=== PATIENT | male | born 1930 | race Caucasian/White ===

== ENCOUNTER 2017-01-12 08:58 | Day surgery (SDC) | payer MEDICARE, BC ==
[2017-01-12] VITALS (13 sets, daily range): BP systolic 135–169; BP diastolic 68–105; PULSE 42–68; TEMP 97.6
[~2017-01-12] VITALS: Ht 172.8 cm; Wt 70.4 kg
[~2017-01-12 08:58] MED LIST: 00186-0370-20 IH; AMBIEN 5MG TABLE5 MG PO; ASPIRIN 32325 MG/TA1 PO; ASPIRIN 32325 MG/TAB PO; ASPIRIN 81M81 MG/TA2 PO; CALCIUM 600600 M2 PO; CEFTIN500 MG PO; CLEOCIN HCL300 MG PO; COZAAR 50MG50 MG/TAB PO; COZAAR100 MG PO; FLOMAX 0.40.4 MG/CAP PO; HCTZ 25MG TAB25 MG PO; HCTZ12.5TAB PO; HYTRIN10 M1 PO; LEVAQUIN 750MG750 M1 PO; MAXZIDE 50 MG-71 TAB PO; MEDROL4 MG; MEDROL4 MG PO; METHYLPREDNISOL32 MG PO; MOTRIN 200200 MG/TAB PO; PLAVIX 75MG TAB75 MG PO; PRINIVIL10 MG PO; PROAIR HFA0.09 MG/AC IH; PROTONIX 40MG T40 MG PO; SYNTHROID0.075 MG/T PO; SYNTHROID0.088 MG/T PO; TOPROL XL 50MG50 MG PO; TYLENOL 500MG500 MG PO; VITAMIN B121000 MC2 SL; VITAMIN B122500 MCG PO; ZITHROMAX500 M2 PO; ZOCOR 80MG80 MG PO
[2017-01-12 09:57] LABS: HEMATOCRIT 41.7 % (42.0-52.0); HEMOGLOBIN 13.8 g/dl (13.5-18.0); MEAN CELL VOLUME 93 fl (80.0-100.0); MEAN CORPUSCULAR HEMOGLOBIN 31 pg (27.0-31.0); MEAN CORPUSCULAR HGB CONC 33 g/dl (33.0-37.0); MEAN PLATELET VOLUME 9.7 fl (7.4-10.4); PLATELET COUNT 262 K/mm3 (130-400); RED BLOOD COUNT 4.48 M/mm3 (4.20-5.60); REDCELL DISTRIBUTION WIDTH-CV 13.4 % (11.5-14.5); WHITE BLOOD COUNT 9.5 K/mm3 (4.8-10.8)
[2017-01-12 10:05] LABS: PROTHROMBIN TIME 11.3 SECONDS (9.7-12.8)
[2017-01-12 10:15] LABS: CALCIUM 8.7 mg/dL (8.4-10.2); CREATININE, serum 1.05 mg/dL (0.66-1.25); POTASSIUM 3.7 mmol/L (3.4-5.0)
[2017-01-12] MEDS ORDERED: CALCIUM 600MG+D1 TAB PO (10:20)
[2017-01-12] MEDS ORDERED: B-121000 MCG PO (10:21)
[2017-01-12] MEDS ORDERED: TYLENOL 500MG500 MG PO (10:21)
[2017-01-12] MEDS ORDERED: DITROPAN XL10 MG PO (10:24)
[2017-01-12] MEDS ORDERED: ASPIRIN 81M81 MG/TA2 PO (10:25)
[2017-01-12] MEDS ORDERED: SYNTHROID0.088 MG/T PO (10:41)
== END 2017-01-12 18:42 | disposition home or self-care (01) ==
LOC: COL.CAR 08:58
PROVIDERS: Internal Medicine Cardiovascular Disease
DX: I25.10 Atherosclerotic heart disease of native coronary artery without angina pectoris (principal); I35.0 Nonrheumatic aortic (valve) stenosis; R94.39 Abnormal result of other cardiovascular function study; J44.9 Chronic obstructive pulmonary disease, unspecified; E78.2 Mixed hyperlipidemia; I10 Essential (primary) hypertension; I65.23 Occlusion and stenosis of bilateral carotid arteries; R06.09 Other forms of dyspnea; Z95.1 Presence of aortocoronary bypass graft; Z95.2 Presence of prosthetic heart valve; Z86.73 Personal history of transient ischemic attack (TIA), and cerebral infarction without residual deficits; Z79.02 Long term (current) use of antithrombotics/antiplatelets; Z87.891 Personal history of nicotine dependence; Z79.899 Other long term (current) drug therapy
CPT/HCPCS: C1760; C1769; J2250; J3010; Q9967

== ENCOUNTER 2017-02-06 23:35 | Emergency (ER) | payer MEDICARE, BC ==
[~2017-02-06] VITALS: Ht 172.7 cm; Wt 72.7 kg
[~2017-02-06 23:35] MED LIST changes: +B-121000 MCG PO; +CALCIUM 600MG+D1 TAB PO; +DITROPAN XL10 MG PO
[2017-02-06 23:43] VITALS: TEMP 98
[2017-02-07 00:06] LABS: BASO # 0.1 (0.0-0.2); BASO % 1.2 % (0.0-2.0); EOS # 0.4 (0.0-0.7); GRAN # 4.4 (1.4-6.5); GRAN % 52.6 % (42.2-75.2); HEMATOCRIT 41.3 % (42.0-52.0); HEMOGLOBIN 13.6 g/dl (13.5-18.0); LYMPH # 2.6 (1.2-3.4); LYMPH % 30.6 % (20.0-51.0); MEAN CELL VOLUME 93 fl (80.0-100.0); MEAN CORPUSCULAR HEMOGLOBIN 31 pg (27.0-31.0); MEAN CORPUSCULAR HGB CONC 33 g/dl (33.0-37.0); MEAN PLATELET VOLUME 9.9 fl (7.4-10.4); MONO # 0.9 (0.1-0.6); MONO % 10.1 % (1.7-9.3); PLATELET COUNT 232 K/mm3 (130-400); RED BLOOD COUNT 4.44 M/mm3 (4.20-5.60); REDCELL DISTRIBUTION WIDTH-CV 13.5 % (11.5-14.5); WHITE BLOOD COUNT 8.4 K/mm3 (4.8-10.8)
[2017-02-07 00:14] LABS: ALBUMIN 3.4 gm/dL (3.5-5.0); BILIRUBIN,TOTAL 0.5 mg/dL (0.0-1.0); CALCIUM 8.5 mg/dL (8.4-10.2); CREATININE, serum 0.98 mg/dL (0.66-1.25); POTASSIUM 3.6 mmol/L (3.4-5.0)
[2017-02-07 00:26] LABS: TROPONIN-I 0.022 ng/mL (0.000-0.034)
[2017-02-07 01:40] VITALS: BP 146/87; PULSE 71
== END 2017-02-07 02:31 | disposition short-term general hospital (02) ==
LOC: COL.ER 23:35
PROVIDERS: Emergency Medicine
DX: R07.89 Other chest pain (principal); F31.9 Bipolar disorder, unspecified; J45.909 Unspecified asthma, uncomplicated; I25.10 Atherosclerotic heart disease of native coronary artery without angina pectoris; M19.90 Unspecified osteoarthritis, unspecified site; K21.9 Gastro-esophageal reflux disease without esophagitis; I10 Essential (primary) hypertension; Z79.82 Long term (current) use of aspirin; Z87.891 Personal history of nicotine dependence; Z95.9 Presence of cardiac and vascular implant and graft, unspecified; Z98.890 Other specified postprocedural states
CPT/HCPCS: J2060

== ENCOUNTER 2017-03-28 22:52 | Inpatient (IN) | payer MEDICARE, BC ==
[~2017-03-28] VITALS: Ht 170.2 cm; Wt 81.1 kg
[2017-03-28] MEDS ORDERED: PLAVIX 75MG TAB75 MG PO (23:04)
[2017-03-28 23:21] LABS: BASO # 0.1 (0.0-0.2); BASO % 1.4 % (0.0-2.0); EOS # 0.1 (0.0-0.7); EOS % 1.7 % (0-4.0); GRAN # 2.3 (1.4-6.5); GRAN % 39.4 % (42.2-75.2); LYMPH # 2.4 (1.2-3.4); LYMPH % 40.7 % (20.0-51.0); MEAN CELL VOLUME 92 fl (80.0-100.0); MEAN CORPUSCULAR HGB CONC 33 g/dl (33.0-37.0); MEAN PLATELET VOLUME 9.9 fl (7.4-10.4); MONO % 16.3 % (1.7-9.3); PLATELET COUNT 188 K/mm3 (130-400); RED BLOOD COUNT 3.78 M/mm3 (4.20-5.60); REDCELL DISTRIBUTION WIDTH-CV 13.4 % (11.5-14.5); WHITE BLOOD COUNT 5.9 K/mm3 (4.8-10.8)
[2017-03-28 23:22] LABS: HEMATOCRIT 34.9 % (42.0-52.0); HEMOGLOBIN 11.5 g/dl (13.5-18.0); MEAN CORPUSCULAR HEMOGLOBIN 30 pg (27.0-31.0)
[2017-03-28 23:27] LABS: INR 0.9 (0.8-3.0); PROTHROMBIN TIME 10.3 SECONDS (9.7-12.8)
[2017-03-28 23:28] LABS: ADJUSTED CALCIUM 9.1 mg/dL (8.4-10.2); ALBUMIN 3.1 gm/dL (3.5-5.0); BILIRUBIN,TOTAL 0.6 mg/dL (0.0-1.0); CALCIUM 8.4 mg/dL (8.4-10.2); CREATININE, serum 1.01 mg/dL (0.66-1.25); POTASSIUM 3.6 mmol/L (3.4-5.0); TOTAL PROTEIN 5.7 gm/dL (6.4-8.2)
[2017-03-28 23:29] LABS: PARTIAL THROMBOPLASTIN TIME 30.4 SECONDS (26.0-37.0)
[2017-03-28 23:40] LABS: TROPONIN-I 0.24 ng/mL (0.000-0.034)
[2017-03-29] VITALS (769 sets, daily range): BP systolic 138–167; BP diastolic 49–62; PULSE 46–82; TEMP 97–98.6; O2SAT 91–100
[2017-03-29 05:42] LABS: BASO # 0.1 (0.0-0.2); BASO % 1.3 % (0.0-2.0); EOS # 0.2 (0.0-0.7); EOS % 3.8 % (0-4.0); GRAN # 2.1 (1.4-6.5); GRAN % 37.7 % (42.2-75.2); LYMPH # 2.3 (1.2-3.4); LYMPH % 41.6 % (20.0-51.0); MEAN CELL VOLUME 93 fl (80.0-100.0); MEAN CORPUSCULAR HGB CONC 33 g/dl (33.0-37.0); MEAN PLATELET VOLUME 10.1 fl (7.4-10.4); MONO # 0.8 (0.1-0.6); MONO % 15.1 % (1.7-9.3); PLATELET COUNT 170 K/mm3 (130-400); RED BLOOD COUNT 3.27 M/mm3 (4.20-5.60); REDCELL DISTRIBUTION WIDTH-CV 13.5 % (11.5-14.5); WHITE BLOOD COUNT 5.5 K/mm3 (4.8-10.8)
[2017-03-29 05:44] LABS: HEMATOCRIT 30.5 % (42.0-52.0); MEAN CORPUSCULAR HEMOGLOBIN 31 pg (27.0-31.0)
[2017-03-29 05:51] LABS: CREATININE, serum 1.06 mg/dL (0.66-1.25); POTASSIUM 3.7 mmol/L (3.4-5.0)
[2017-03-30] VITALS (200 sets, daily range): BP systolic 113–172; BP diastolic 44–62; PULSE 48–91; TEMP 97.2–98.5; O2SAT 83–98
[2017-03-30 05:28] LABS: BASO # 0.1 (0.0-0.2); BASO % 1.2 % (0.0-2.0); EOS # 0.3 (0.0-0.7); EOS % 3.8 % (0-4.0); GRAN # 3.5 (1.4-6.5); LYMPH # 1.9 (1.2-3.4); LYMPH % 28.9 % (20.0-51.0); MEAN CELL VOLUME 93 fl (80.0-100.0); MEAN CORPUSCULAR HGB CONC 33 g/dl (33.0-37.0); MEAN PLATELET VOLUME 9.4 fl (7.4-10.4); MONO # 0.8 (0.1-0.6); MONO % 11.5 % (1.7-9.3); PLATELET COUNT 178 K/mm3 (130-400); RED BLOOD COUNT 3.72 M/mm3 (4.20-5.60); REDCELL DISTRIBUTION WIDTH-CV 13.7 % (11.5-14.5); WHITE BLOOD COUNT 6.5 K/mm3 (4.8-10.8)
[2017-03-30 05:33] LABS: HEMATOCRIT 34.5 % (42.0-52.0); HEMOGLOBIN 11.4 g/dl (13.5-18.0); MEAN CORPUSCULAR HEMOGLOBIN 31 pg (27.0-31.0)
[2017-03-30 05:37] LABS: CALCIUM 7.7 mg/dL (8.4-10.2); CREATININE, serum 1.09 mg/dL (0.66-1.25); POTASSIUM 3.8 mmol/L (3.4-5.0)
[2017-03-30 05:53] LABS: PROTHROMBIN TIME 11.2 SECONDS (9.7-12.8)
[2017-03-31 00:11] VITALS: BP 157/49; PULSE 57; TEMP 98.5
[2017-03-31 02:25] VITALS: BP 164/54; PULSE 66; TEMP 99.2
[2017-03-31 04:29] VITALS: BP 164/54; PULSE 66; TEMP 99.2
[2017-03-31 07:31] VITALS: BP 120/48; PULSE 72; TEMP 97.4
[2017-03-31] MEDS ORDERED: NORVASC 10MG10 MG PO (11:45)
[2017-03-31] MEDS ORDERED: VASOTEC 5MG5 MG/TAB PO (11:55)
[2017-03-31 12:05] VITALS: BP 143/47; PULSE 55; TEMP 97.6
== END 2017-03-31 13:20 | disposition home or self-care (01) | DRG 281 ==
LOC: COL.ER 22:52 → ICU 03-29 01:13 → MEDICAL 03-30 19:15
PROVIDERS: Emergency Medicine; Internal Medicine; Nurse Practitioner Family
PROC: B2111ZZ Fluoroscopy of Multiple Coronary Arteries using Low Osmolar Contrast (ICD-10-PCS; principal; 2017-03-30)
DX: I10 Essential (primary) hypertension (principal); I21.4 Non-ST elevation (NSTEMI) myocardial infarction; I42.9 Cardiomyopathy, unspecified; I25.10 Atherosclerotic heart disease of native coronary artery without angina pectoris; Z95.5 Presence of coronary angioplasty implant and graft; Z95.2 Presence of prosthetic heart valve; J45.909 Unspecified asthma, uncomplicated; Z87.891 Personal history of nicotine dependence; Z86.73 Personal history of transient ischemic attack (TIA), and cerebral infarction without residual deficits
CPT/HCPCS: 99223-AI; 99232-AI; 99239; A9502; C1760; C1894; J0360; J1650; J2250; J2405; J2785; J3010; J7030; Q9967

== ENCOUNTER 2017-11-24 10:10 | Day surgery (SDC) | payer MEDICARE, BC ==
[~2017-11-24] VITALS: Ht 172.7 cm; Wt 67.8 kg
[~2017-11-24 10:10] MED LIST changes: +DEMADEX 20MG20 M1 PO; +K-DUR 10 MEQ T10 MEQ PO; +K-DUR20 MEQ PO; +NORVASC 10MG10 MG PO; +VASOTEC 5MG5 MG/TAB PO; +ZOCOR 40MG40 MG PO
[2017-11-24] MEDS ORDERED: VASOTEC 10M10 MG/TAB PO (10:31)
[2017-11-24] MEDS ORDERED: PEPCID40 MG PO (10:37)
[2017-11-24] MEDS ORDERED: HCTZ 25MG TAB25 MG PO (10:37)
[2017-11-24] MEDS ORDERED: NITROSTAT0.4 MG/TAB SL (10:38)
[2017-11-24] MEDS ORDERED: PROAIR HFA0.09 MG/AC IH (10:38)
[2017-11-24 10:40] VITALS: BP 125/56; PULSE 65; TEMP 97.8
[2017-11-24 12:15] VITALS: BP 109/46; PULSE 57; TEMP 97.1
[2017-11-24 12:30] VITALS: BP 129/48; PULSE 59
[2017-11-24 12:45] VITALS: BP 126/46; PULSE 61
[2017-11-24 13:27] VITALS: BP 109/50; PULSE 48
== END 2017-11-24 13:00 | disposition home or self-care (01) ==
LOC: SDCO 10:10
DX: K59.00 Constipation, unspecified (principal); R19.7 Diarrhea, unspecified; K57.30 Diverticulosis of large intestine without perforation or abscess without bleeding; K21.9 Gastro-esophageal reflux disease without esophagitis; K44.9 Diaphragmatic hernia without obstruction or gangrene; R10.13 Epigastric pain; R63.4 Abnormal weight loss; D64.9 Anemia, unspecified; M19.90 Unspecified osteoarthritis, unspecified site; J45.909 Unspecified asthma, uncomplicated; I42.9 Cardiomyopathy, unspecified; I25.10 Atherosclerotic heart disease of native coronary artery without angina pectoris; I10 Essential (primary) hypertension; J84.10 Pulmonary fibrosis, unspecified; E03.9 Hypothyroidism, unspecified; E78.00 Pure hypercholesterolemia, unspecified; Z95.2 Presence of prosthetic heart valve; Z88.1 Allergy status to other antibiotic agents; Z79.01 Long term (current) use of anticoagulants
CPT/HCPCS: J2250; J2405; J3010; J7030

== ENCOUNTER 2018-01-18 09:12 | Inpatient (IN) | payer MEDICARE, BC ==
[~2018-01-18] VITALS: Ht 172.7 cm; Wt 61.4 kg
[~2018-01-18 09:12] MED LIST changes: +NITROSTAT0.4 MG/TAB SL; +PEPCID40 MG PO; +VASOTEC 10M10 MG/TAB PO
[2018-01-18 09:54] LABS: BASO # 0.1 (0.0-0.2); EOS # 0.1 (0.0-0.7); EOS % 1.1 % (0-4.0); GRAN # 5.3 (1.4-6.5); GRAN % 63.4 % (42.2-75.2); HEMATOCRIT 36.8 % (42.0-52.0); HEMOGLOBIN 12.7 g/dl (13.5-18.0); LYMPH # 1.5 (1.2-3.4); LYMPH % 17.9 % (20.0-51.0); MEAN CELL VOLUME 90 fl (80.0-100.0); MEAN CORPUSCULAR HEMOGLOBIN 31 pg (27.0-31.0); MEAN CORPUSCULAR HGB CONC 35 g/dl (33.0-37.0); MEAN PLATELET VOLUME 10.3 fl (7.4-10.4); MONO # 1.4 (0.1-0.6); MONO % 16.1 % (1.7-9.3); PLATELET COUNT 262 K/mm3 (130-400); RED BLOOD COUNT 4.09 M/mm3 (4.20-5.60); REDCELL DISTRIBUTION WIDTH-CV 12.8 % (11.5-14.5)
[2018-01-18 10:04] LABS: ALBUMIN 3.6 gm/dL (3.5-5.0); BILIRUBIN,TOTAL 0.3 mg/dL (0.0-1.0); CALCIUM 8.5 mg/dL (8.4-10.2); MAGNESIUM 2.2 mg/dL (1.6-2.3); PHOSPHOROUS 6.5 mg/dL (2.5-4.5); POTASSIUM 3.5 mmol/L (3.4-5.0); TOTAL PROTEIN 6.9 gm/dL (6.4-8.2)
[2018-01-18 10:06] LABS: CREATININE, serum 4.37 mg/dL (0.66-1.25)
[2018-01-18 10:08] LABS: INR 0.9 (0.8-3.0); PROTHROMBIN TIME 9.9 SECONDS (9.7-12.8)
[2018-01-18 10:10] LABS: PARTIAL THROMBOPLASTIN TIME 26.2 SECONDS (26.0-37.0)
[2018-01-18] MEDS ORDERED: HCTZ 25MG TAB25 MG PO (10:19)
[2018-01-18 14:35] LABS: BASO # 0.1 (0.0-0.2); BASO % 0.6 % (0.0-2.0); EOS # 0.1 (0.0-0.7); GRAN # 4.6 (1.4-6.5); GRAN % 57.8 % (42.2-75.2); HEMOGLOBIN 11.9 g/dl (13.5-18.0); LYMPH # 1.9 (1.2-3.4); LYMPH % 24.1 % (20.0-51.0); MEAN CELL VOLUME 91 fl (80.0-100.0); MEAN CORPUSCULAR HEMOGLOBIN 31 pg (27.0-31.0); MEAN CORPUSCULAR HGB CONC 34 g/dl (33.0-37.0); MEAN PLATELET VOLUME 10.1 fl (7.4-10.4); MONO # 1.3 (0.1-0.6); PLATELET COUNT 243 K/mm3 (130-400); RED BLOOD COUNT 3.87 M/mm3 (4.20-5.60); REDCELL DISTRIBUTION WIDTH-CV 12.8 % (11.5-14.5)
[2018-01-18 14:39] LABS: CALCIUM 8.1 mg/dL (8.4-10.2); HEMATOCRIT 35.2 % (42.0-52.0); POTASSIUM 3.5 mmol/L (3.4-5.0)
[2018-01-18 14:41] LABS: CREATININE, serum 3.92 mg/dL (0.66-1.25)
[2018-01-18 16:12] LABS: COLLECTION METHOD CATHETER
[2018-01-18 16:23] LABS: HYALINE CAST >12 /lpf; MUCOUS Present /lpf; PH 5 (5-8); SQUAMOUS EPITHELIAL 0-2 /hpf; URINE APPEARANCE Hazy; URINE BACTERIA None Seen /hpf; URINE BILIRUBIN Negative (NEGATIVE); URINE BLOOD Negative (NEGATIVE); URINE COLOR Amber; URINE GLUCOSE Negative (NEGATIVE); URINE KETONE Negative (NEGATIVE); URINE LEUKOCYTE ESTERASE Negative (NEGATIVE); URINE NITRATE Negative (NEGATIVE); URINE PROTEIN(semi-quant) Negative (NEGATIVE); URINE RBC 0-2 /hpf; URINE UROBILINOGEN Negative (NEGATIVE)
[2018-01-18 17:22] VITALS: BP 118/44; PULSE 79; TEMP 97.9
[2018-01-18 19:42] VITALS: BP 138/47; PULSE 88
[2018-01-19 00:43] VITALS: BP 127/43; PULSE 72; TEMP 98.8
[2018-01-19 04:16] VITALS: BP 132/49; PULSE 73
[2018-01-19 07:20] LABS: CALCIUM 7.4 mg/dL (8.4-10.2); CREATININE, serum 2.67 mg/dL (0.66-1.25); PHOSPHOROUS 4.4 mg/dL (2.5-4.5)
[2018-01-19 07:24] LABS: BASO # 0.1 (0.0-0.2); BASO % 1.3 % (0.0-2.0); EOS # 0.1 (0.0-0.7); EOS % 2.5 % (0-4.0); GRAN # 3.4 (1.4-6.5); GRAN % 61.1 % (42.2-75.2); HEMOGLOBIN 10.5 g/dl (13.5-18.0); LYMPH # 1.1 (1.2-3.4); LYMPH % 19.2 % (20.0-51.0); MEAN CELL VOLUME 91 fl (80.0-100.0); MEAN CORPUSCULAR HEMOGLOBIN 31 pg (27.0-31.0); MEAN CORPUSCULAR HGB CONC 34 g/dl (33.0-37.0); MEAN PLATELET VOLUME 10.3 fl (7.4-10.4); MONO # 0.9 (0.1-0.6); MONO % 15.2 % (1.7-9.3); PLATELET COUNT 216 K/mm3 (130-400); RED BLOOD COUNT 3.39 M/mm3 (4.20-5.60); REDCELL DISTRIBUTION WIDTH-CV 12.8 % (11.5-14.5)
[2018-01-19 07:38] VITALS: BP 134/77; PULSE 67; TEMP 98.3
[2018-01-19 11:30] VITALS: BP 146/49; PULSE 61; TEMP 97.6
[2018-01-19 15:54] VITALS: BP 150/45; PULSE 57; TEMP 96.7
[2018-01-19 19:16] VITALS: BP 137/42; PULSE 58; TEMP 98.2
[2018-01-20 00:03] VITALS: BP 151/38; PULSE 52; TEMP 98.2
[2018-01-20 02:27] VITALS: BP 151/44; PULSE 52; TEMP 98
[2018-01-20 07:34] VITALS: BP 145/44; PULSE 63; TEMP 98.2
[2018-01-20 07:47] LABS: BASO # 0.1 (0.0-0.2); BASO % 0.9 % (0.0-2.0); EOS # 0.2 (0.0-0.7); EOS % 2.8 % (0-4.0); GRAN # 2.6 (1.4-6.5); GRAN % 46.8 % (42.2-75.2); HEMOGLOBIN 10.5 g/dl (13.5-18.0); LYMPH # 1.8 (1.2-3.4); LYMPH % 33.5 % (20.0-51.0); MEAN CELL VOLUME 92 fl (80.0-100.0); MEAN CORPUSCULAR HEMOGLOBIN 31 pg (27.0-31.0); MEAN CORPUSCULAR HGB CONC 33 g/dl (33.0-37.0); MEAN PLATELET VOLUME 10.5 fl (7.4-10.4); MONO # 0.8 (0.1-0.6); MONO % 14.7 % (1.7-9.3); PLATELET COUNT 233 K/mm3 (130-400); RED BLOOD COUNT 3.43 M/mm3 (4.20-5.60); REDCELL DISTRIBUTION WIDTH-CV 12.8 % (11.5-14.5)
[2018-01-20 07:51] LABS: HEMATOCRIT 31.7 % (42.0-52.0)
[2018-01-20 07:52] LABS: CALCIUM 7.8 mg/dL (8.4-10.2); CREATININE, serum 2.02 mg/dL (0.66-1.25); MAGNESIUM 1.9 mg/dL (1.6-2.3); POTASSIUM 3.4 mmol/L (3.4-5.0)
[2018-01-20 11:47] VITALS: BP 145/37; PULSE 55; TEMP 98.1
[2018-01-20] MEDS ORDERED: CIPRO 500MG TA500 MG PO (12:55)
== END 2018-01-20 13:40 | disposition home or self-care (01) | DRG 868 ==
LOC: COL.ER 09:12 → EDBEDREQTM 13:22 → EDBEDREQ 13:22 → MEDICAL 13:22 → EDBEDREQSVC 13:22 → MEDICAL 16:36
PROVIDERS: Emergency Medicine; Physician Assistant
DX: A02.8 Other specified salmonella infections (principal); N17.9 Acute kidney failure, unspecified; I42.9 Cardiomyopathy, unspecified; E86.0 Dehydration; I10 Essential (primary) hypertension; E87.6 Hypokalemia; I25.10 Atherosclerotic heart disease of native coronary artery without angina pectoris; Z87.891 Personal history of nicotine dependence; Z95.5 Presence of coronary angioplasty implant and graft; Z95.2 Presence of prosthetic heart valve; Z86.73 Personal history of transient ischemic attack (TIA), and cerebral infarction without residual deficits; Z79.01 Long term (current) use of anticoagulants
CPT/HCPCS: 99222-AI; 99232-AI; 99239; J0744; J1644; J7030; J7509

== ENCOUNTER 2018-03-16 13:58 | Outpatient (RCR) | payer SELFPAY ==
[~2018-03-16 13:58] MED LIST changes: +CIPRO 500MG TA500 MG PO
== END 2018-05-08 | disposition home or self-care (01) ==
LOC: COL.CR
DX: Z02.9 Encounter for administrative examinations, unspecified (principal)

== ENCOUNTER 2020-02-24 07:03 | Inpatient (IN) | payer MEDICARE, BC ==
[2020-02-24] VITALS (11 sets, daily range): BP systolic 84–168; BP diastolic 50–67; PULSE 60–80; TEMP 97.4–98.9
[~2020-02-24] VITALS: Ht 172.7 cm; Wt 73.9 kg
[~2020-02-24 07:03] MED LIST changes: +CEPHALEXIN500 M1 PO; +CORDARONE200 MG/TAB PO; +LIPITOR20 MG PO; +PROTONIX20 MG PO
[2020-02-24 10:38] LABS: BASO # 0.1 (0.0-0.2); BASO % 1.4 % (0.0-2.0); EOS # 0.2 (0.0-0.7); GRAN # 4.3 (1.4-6.5); GRAN % 58.8 % (42.2-75.2); HEMOGLOBIN 11.9 g/dl (13.5-18.0); LYMPH # 1.9 (1.2-3.4); LYMPH % 25.3 % (20.0-51.0); MEAN CELL VOLUME 96 fl (80.0-100.0); MEAN CORPUSCULAR HEMOGLOBIN 31 pg (27.0-31.0); MEAN CORPUSCULAR HGB CONC 32 g/dl (33.0-37.0); MEAN PLATELET VOLUME 10.2 fl (7.4-10.4); MONO # 0.8 (0.1-0.6); MONO % 10.8 % (1.7-9.3); PLATELET COUNT 187 K/mm3 (130-400); RED BLOOD COUNT 3.84 M/mm3 (4.20-5.60); REDCELL DISTRIBUTION WIDTH-CV 14.7 % (11.5-14.5)
[2020-02-24 10:44] LABS: ALBUMIN 3.5 gm/dL (3.5-5.0); BILIRUBIN,TOTAL 0.6 mg/dL (0.0-1.0); CALCIUM 8.5 mg/dL (8.4-10.2); CREATININE, serum 1.82 (0.66-1.25); MAGNESIUM 2.2 mg/dL (1.6-2.3); POTASSIUM 3.8 mmol/L (3.4-5.0); TOTAL PROTEIN 6.1 gm/dL (6.4-8.2)
--- NOTE | 2020-02-24 11:21 | NUR ---
Pt up to room 309 w/ at bedside, pt is A&O, independent in room, on room air. Breathing is even and unlabored. pt on tele. Pt has IV to RFA, drainage noted. Will redress or start new IV if not working. pt denies any pain at this time. HR RRR. LS clear. Pulses strong bilaterally. Pt has scrape to LFA covered w/ bandaid. No further needs noted at this time. Call light within reach.
--- NOTE | 2020-02-24 11:36 | NUR ---
New 22g IV started to LFA, flushes w/o difficulty. Pt eating lunch. Sotalol given, Qtc 537, discussed w/ Mickie and Dr. Yeager, ok to give, call if Wtc >600.
--- NOTE | 2020-02-24 16:06 | NUR ---
Patient Service Technician Pst met with patient and patient's Nilda (ph#[phone]) to discuss discharge planning. Patient lives in [place] with Nilda and sees Dr. Pires for primary care. Patient obtains medications from [facility] with no difficulties. Patient denies DME usage and reports independence with ADLS. Patient states he has DPOA-HC completed but SW did not locate copy in EMR. Patient plans to return home at discharge. SW to continue to follow as needed.
--- NOTE | 2020-02-24 17:31 | NUR ---
Pt sitting in recliner, watching tv. Pt denies any needs. RFA IV dc'd w/ catheter tip intact, no complications. Water provided per request. Call light within reach.
--- NOTE | 2020-02-24 20:00 | NUR ---
At time of assessment, patient is alert and oriented and has no complaints of pain. Heart sounds are regular/normal, lungs are clear. He has 1+ pitting edema in bilateral ankles/feet which he states is chronic for him. No new concerns at this time. Will continue to monitor.
[2020-02-25 04:00] VITALS: BP 141/77; PULSE 59; TEMP 98.2
--- NOTE | 2020-02-25 06:04 | NUR ---
Patient has had an uneventful, restful night. His Qtc this morning is 618. Dr. Yeager will be notified.
[2020-02-25 07:19] LABS: BASO # 0.1 (0.0-0.2); BASO % 1.8 % (0.0-2.0); EOS # 0.3 (0.0-0.7); EOS % 4.5 % (0-4.0); GRAN # 3.5 (1.4-6.5); GRAN % 52.6 % (42.2-75.2); HEMOGLOBIN 12.5 g/dl (13.5-18.0); LYMPH % 29.8 % (20.0-51.0); MEAN CELL VOLUME 96 fl (80.0-100.0); MEAN CORPUSCULAR HEMOGLOBIN 31 pg (27.0-31.0); MEAN CORPUSCULAR HGB CONC 32 g/dl (33.0-37.0); MEAN PLATELET VOLUME 10.6 fl (7.4-10.4); MONO # 0.7 (0.1-0.6); MONO % 10.6 % (1.7-9.3); PLATELET COUNT 194 K/mm3 (130-400); RED BLOOD COUNT 4.05 M/mm3 (4.20-5.60); REDCELL DISTRIBUTION WIDTH-CV 14.7 % (11.5-14.5)
[2020-02-25 07:43] LABS: CALCIUM 8.3 mg/dL (8.4-10.2); CREATININE, serum 1.77 (0.66-1.25); MAGNESIUM 2.3 mg/dL (1.6-2.3); POTASSIUM 4.4 mmol/L (3.4-5.0)
[2020-02-25 07:44] VITALS: BP 107/58; PULSE 62; TEMP 97.9
--- NOTE | 2020-02-25 11:09 | NUR ---
Pt assessment completed and charted, alert, oriented, independent, and is on roomair. I/V flushed with no complications. Morning meds provided as per NOV, provided breakfast, tolerated well. No N/V/D, pain, numbness, tingling, edema, SOB at this time as per pt. No further needs at this time.
[2020-02-25 11:30] VITALS: BP 141/51; PULSE 65; TEMP 97.6
--- NOTE | 2020-02-25 11:32 | NUR ---
First visit from the hammer adjuster. No needs right now.
--- NOTE | 2020-02-25 13:49 | NUR ---
SW met with the patient to revisit the discharge plan. The patient plans to return home at discharge and does not questions or concerns about doing so. There are no additional needs at this time.
[2020-02-25 15:58] VITALS: BP 140/55; PULSE 63; TEMP 98
[2020-02-25 20:12] VITALS: BP 143/69; PULSE 69; TEMP 97.4
[2020-02-25] MEDS ORDERED: PROTONIX 40MG T40 MG PO (20:42)
[2020-02-25] MEDS ORDERED: NATURAL POTASS595 MG PO (20:48)
[2020-02-25] MEDS ORDERED: HYTRIN10 M1 PO (20:49)
[2020-02-25] MEDS ORDERED: SINGULAIR 110 MG/TAB PO (20:50)
[2020-02-25] MEDS ORDERED: PROAIR HFA0.09 MG/AC IH (20:51)
[2020-02-25] MEDS ORDERED: NITROSTAT0.4 MG/TAB SL (20:52)
--- NOTE | 2020-02-25 21:45 | NUR ---
Pt assessment completed. Pt resting in bed at this time watching television. Pt alert and oriented x4. Pt denies pain at this time. INT to left forearm patent and free of complications. Pt denies any other needs at this time. Call light within reach. Will continue to monitor
[2020-02-26 00:20] VITALS: BP 123/71; PULSE 64; TEMP 97.5
[2020-02-26 04:15] VITALS: BP 153/65; PULSE 61; TEMP 97.7
--- NOTE | 2020-02-26 05:15 | NUR ---
Pt had uneventful shift. Pt rested well throughout the night. No complaints of pain. IV to left forearm free of complications. Pt denies any other needs at this time. Call light within reach. Will continue to monitor.
[2020-02-26 07:22] LABS: BASO # 0.1 (0.0-0.2); BASO % 1.5 % (0.0-2.0); EOS # 0.3 (0.0-0.7); EOS % 4.5 % (0-4.0); GRAN # 3.8 (1.4-6.5); GRAN % 51.2 % (42.2-75.2); HEMATOCRIT 40.1 % (42.0-52.0); HEMOGLOBIN 12.9 g/dl (13.5-18.0); LYMPH # 2.4 (1.2-3.4); MEAN CELL VOLUME 98 fl (80.0-100.0); MEAN CORPUSCULAR HEMOGLOBIN 32 pg (27.0-31.0); MEAN CORPUSCULAR HGB CONC 32 g/dl (33.0-37.0); MEAN PLATELET VOLUME 10.5 fl (7.4-10.4); MONO # 0.8 (0.1-0.6); MONO % 10.4 % (1.7-9.3); PLATELET COUNT 195 K/mm3 (130-400); REDCELL DISTRIBUTION WIDTH-CV 14.6 % (11.5-14.5)
[2020-02-26 07:23] VITALS: BP 103/58; BP 147/47; PULSE 64; TEMP 97.8
[2020-02-26 07:31] LABS: CALCIUM 8.5 mg/dL (8.4-10.2); CREATININE, serum 1.79 (0.66-1.25); MAGNESIUM 2.3 mg/dL (1.6-2.3); POTASSIUM 4.5 mmol/L (3.4-5.0)
--- NOTE | 2020-02-26 11:21 | NUR ---
SW met with patient to revisit the discharge plan. The patient plans to return home and does not have any concerns about doing so. There are no additional needs at this time.
[2020-02-26 11:25] VITALS: BP 142/56; PULSE 70; TEMP 97.8
--- NOTE | 2020-02-26 11:38 | NUR ---
Patient is alert and oriented. denies any pain. QTc this morning is 613. Dr Yeager was informed, he wants the next dose of Sodalol administered.
[2020-02-26] MEDS ORDERED: BETAPACE 80MG80 MG PO (14:53)
--- NOTE | 2020-02-26 17:35 | NUR ---
Patient was discharge with order for Sotalol 80mg BID PO. INT discontinued. Patient was given information about AFIB, Sotalol, and future appointment with Disability Case Manager. Patient discharged with .
== END 2020-02-26 16:55 | disposition home or self-care (01) | DRG 310 ==
LOC: COL.CARD 07:03 → MEDICAL 09:43
PROVIDERS: ADMIT Internal Medicine Cardiovascular Disease
DX: I48.91 Unspecified atrial fibrillation (principal)
CPT/HCPCS: A9500; J2785; J7509

== ENCOUNTER 2021-06-24 15:47 | Inpatient (IN) | payer MEDICARE, BC ==
[~2021-06-24] VITALS: Ht 165.1 cm; Wt 73.4 kg
[~2021-06-24 15:47] MED LIST changes: +BETAPACE 80MG80 MG PO; +NATURAL POTASS595 MG PO; +SINGULAIR 110 MG/TAB PO
[2021-06-24 16:21] LABS: BASO % 0.4 % (0.0-2.0); EOS % 0.1 % (0-4.0); GRAN # 9.4 K/mm3 (1.4-6.5); GRAN % 84.9 % (42.2-75.2); LYMPH # 0.7 K/mm3 (1.2-3.4); LYMPH % 6.5 % (20.0-51.0); MEAN CELL VOLUME 97 fl (80.0-100.0); MEAN CORPUSCULAR HGB CONC 32 g/dl (33.0-37.0); MEAN PLATELET VOLUME 10.1 fl (7.4-10.4); MONO # 0.8 K/mm3 (0.1-0.6); MONO % 7.2 % (1.7-9.3); PLATELET COUNT 161 K/mm3 (130-400); RED BLOOD COUNT 2.94 M/mm3 (4.20-5.60); REDCELL DISTRIBUTION WIDTH-CV 14.7 % (11.5-14.5)
[2021-06-24 16:23] LABS: HEMATOCRIT 28.6 % (42.0-52.0); HEMOGLOBIN 9.2 g/dl (13.5-18.0); MEAN CORPUSCULAR HEMOGLOBIN 31 pg (27.0-31.0)
[2021-06-24 16:38] LABS: ALBUMIN 2.6 gm/dL (3.4-4.8); BILIRUBIN,TOTAL 0.7 mg/dL (0.2-1.2); CALCIUM 8.6 mg/dL (8.4-10.2); CREATININE, serum 2.44 mg/dL (0.72-1.25); POTASSIUM 4.7 mmol/L (3.5-4.5); TOTAL PROTEIN 5.7 gm/dL (6.2-8.1)
[2021-06-24 16:46] LABS: TROPONIN-I 0.112 ng/mL (0.00-0.033)
[2021-06-24 17:11] LABS: COLLECTION METHOD CLEAN CATCH
[2021-06-24 17:22] LABS: PH 5 (5-8); SQUAMOUS EPITHELIAL 0-2 /hpf; URINE APPEARANCE Hazy; URINE BACTERIA None Seen /hpf; URINE BILIRUBIN Negative (NEGATIVE); URINE BLOOD 2+ (NEGATIVE); URINE COLOR Yellow; URINE GLUCOSE Negative (NEGATIVE); URINE KETONE Negative (NEGATIVE); URINE LEUKOCYTE ESTERASE Negative (NEGATIVE); URINE NITRATE Negative (NEGATIVE); URINE PROTEIN(semi-quant) Negative (NEGATIVE); URINE UROBILINOGEN Negative (NEGATIVE)
[2021-06-24 19:55] VITALS: BP 129/66; PULSE 65; TEMP 97.4
[2021-06-25] VITALS (7 sets, daily range): BP systolic 129–155; BP diastolic 45–79; PULSE 59–70; TEMP 97.3–98.2
--- NOTE | 2021-06-25 00:18 | NUR ---
PT ARRIVED TO MEDICAL FLOOR ROOM 356 AT 2110 BY ED STAFF VIA BED PT ABLE TO AMBULATE TO BED, PT A/OX4, 02 2L NC WITH SATURATIONS OVER 92 PERCENT, PT SOA AND DYSNPEIC WITH AMBULATION.PT HAS UNSTEADY GAIT AND REQUIRES HIS CANE WHICH IS AT HOME. PT NOTED FALL RISK, YELLOW GAIN, SOCKS, BRACELET ON.ASSESMENT COMPLETED. MED REC COMPLETED WITHOUT MED LIST, THIS NURSE ATTEMPTED SEVERAL TIMES TO CONTACT PTS TO RETRIEVE MEDICATION LIST, UNSUCCESFUL ATTEMPTS. THIS NURSE WILL CONTINUE TO CONTACT AND RELAY TO ONCOMING SHIFT. PT ORIENTED TO FLOOR, HOSPITAL POLICY. POC DISCUSSED WITH PT. PT VERBALIZES UNDERSTANDING. ALL QUESTIONS/ CONCERNS ANSWERED. BED LOW. BED ALARM ON. CALL LIGHT WITHIN REACH.
--- NOTE | 2021-06-25 05:47 | NUR ---
PT SLEPT MAJORITY OF THIS NIGHT, 02 4L NC, PT CONTINUES TO AMBULATE TO TOILET AND DECLINES BEDSIDE COMMODE OR URINAL USE. PT UNSTEADY ON HIS FEET AND REMAINS SBA. ALL MEDICATIONS ADMINISTERED ORDERED. I&O NOTED AND RECORDED. PT EXPRESSES NO ADDITIONAL NEEDS AT THIS TIME. CALL LIGHT WITHIN REACH.
--- NOTE | 2021-06-25 07:00 | NUR ---
Report received from MILA Vásquez.. Pt in bed resting, denies needs, will continue to monitor.
[2021-06-25 07:15] LABS: BASO % 0.6 % (0.0-2.0); GRAN # 5.6 K/mm3 (1.4-6.5); GRAN % 87.8 % (42.2-75.2); LYMPH # 0.5 K/mm3 (1.2-3.4); LYMPH % 8.3 % (20.0-51.0); MEAN CELL VOLUME 97 fl (80.0-100.0); MEAN CORPUSCULAR HGB CONC 33 g/dl (33.0-37.0); MEAN PLATELET VOLUME 10.7 fl (7.4-10.4); MONO # 0.2 K/mm3 (0.1-0.6); MONO % 2.5 % (1.7-9.3); PLATELET COUNT 179 K/mm3 (130-400); RED BLOOD COUNT 2.91 M/mm3 (4.20-5.60); REDCELL DISTRIBUTION WIDTH-CV 14.7 % (11.5-14.5)
[2021-06-25 07:18] LABS: HEMATOCRIT 28.1 % (42.0-52.0); HEMOGLOBIN 9.2 g/dl (13.5-18.0); MEAN CORPUSCULAR HEMOGLOBIN 32 pg (27.0-31.0)
[2021-06-25 07:30] LABS: CALCIUM 8.8 mg/dL (8.4-10.2); CREATININE, serum 2.31 mg/dL (0.72-1.25); POTASSIUM 4.5 mmol/L (3.5-4.5)
--- NOTE | 2021-06-25 11:18 | NUR ---
Initial visit; Patient sleeping, Tower Loader Operator left 'Prayer card' with Tower Loader Operator's blessings.
--- NOTE | 2021-06-25 12:08 | NUR ---
Assessment hcarted. Update provided to at bedside, called Eliud earlier regarding concerns for antibiotic coverage and cardiac workup. Orders implemented by Eliud. Will continue to monitor.
[2021-06-25 12:18] LABS: IRON,SERUM 34 ug/dL (35-150)
[2021-06-25 12:27] LABS: TOTAL IRON BINDING CAPACITY 193 ug/dL (261-462)
--- NOTE | 2021-06-25 14:06 | NUR ---
Primary nurse was assisted with [id number] patient care by [employer] [facility] Debra Haq and [employer] instructor Nicole Kohler MSN, RN
--- NOTE | 2021-06-25 18:29 | NUR ---
Pt remains very wheezy and it has increased, disucssed with SY Ramos and she will take a look at things. Pt taking PO well, up to void often todya. Will continue to monitor.
[2021-06-25 20:32] LABS: PARTIAL THROMBOPLASTIN TIME 28.8 SECONDS (26.0-37.0)
--- NOTE | 2021-06-26 01:33 | NUR ---
PT AMBULATED TO BATHROOM, DUMPED URINE BEFORE ABLE TO CHART OUTPUT. PT DID NOT HAVE OXYGEN ON STATING "I DON'T NEED OXYGEN" OXYGEN REPLACED AND PT RETURNED TO BED. SPO2 AT 93%.
[2021-06-26 05:02] VITALS: BP 142/57; PULSE 70; TEMP 97.5
[2021-06-26 06:36] LABS: MEAN CELL VOLUME 95 fl (80.0-100.0); MEAN CORPUSCULAR HGB CONC 33 g/dl (33.0-37.0); MEAN PLATELET VOLUME 10.5 fl (7.4-10.4); PLATELET COUNT 206 K/mm3 (130-400); RED BLOOD COUNT 2.85 M/mm3 (4.20-5.60); REDCELL DISTRIBUTION WIDTH-CV 14.8 % (11.5-14.5)
[2021-06-26 06:38] LABS: HEMATOCRIT 27.2 % (42.0-52.0); MEAN CORPUSCULAR HEMOGLOBIN 32 pg (27.0-31.0)
[2021-06-26 06:54] LABS: CALCIUM 8.3 mg/dL (8.4-10.2); CREATININE, serum 2.09 mg/dL (0.72-1.25)
[2021-06-26 06:57] LABS: LYMPHOCYTE 3 % (20.0-51.0); NEUTROPHILS 91 % (42.0-75.2); OVALOCYTES 1+
[2021-06-26 06:58] LABS: ANISOCYTOSIS 1+; HYPOCHROMIA 1+; SCHISTOCYTES 1+
[2021-06-26 06:59] LABS: PLATELET ESTIMATE NORMAL (NORMAL)
[2021-06-26 08:13] VITALS: BP 143/48; PULSE 73; TEMP 97.6
--- NOTE | 2021-06-26 09:32 | NUR ---
Pt awake upon entry, spouse in room with Pt. No C/O pain at this time. Shift assessment complete, left Pt in bed, lowest position, call light in reach.
[2021-06-26 11:33] VITALS: BP 154/48; PULSE 64; TEMP 97.7
--- NOTE | 2021-06-26 15:31 | NUR ---
Plan is to return homw in [facility]. SW met with patient about care. Patient gave permission to speak in front of about care. Nilda . Patient reports pcp Dr. 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 Other specialist are Dr. Yeager, No poa on file but wll default to . Patient reports that he does not have any care concerns and is not in any pain. Patient reports that he is not really sure what is going on with him. Educated on supports to case management. Will follow.
[2021-06-26 17:03] VITALS: BP 155/54; PULSE 69; TEMP 97.8
[2021-06-26 20:14] VITALS: BP 163/49; PULSE 76; TEMP 98.4
[2021-06-27] VITALS (7 sets, daily range): BP systolic 119–165; BP diastolic 47–70; PULSE 65–89; TEMP 97.6–98.4
--- NOTE | 2021-06-27 08:43 | NUR ---
Pt awake upon entry to room, no C/O pain at this time. Assisted Pt with ordering breakfast. Shift assessment complete, left Pt call light in reach, bed in lowest position.
[2021-06-27 09:22] LABS: MEAN CELL VOLUME 97 fl (80.0-100.0); MEAN CORPUSCULAR HGB CONC 33 g/dl (33.0-37.0); MEAN PLATELET VOLUME 10.9 fl (7.4-10.4); PLATELET COUNT 200 K/mm3 (130-400); RED BLOOD COUNT 2.68 M/mm3 (4.20-5.60)
[2021-06-27 09:26] LABS: HEMATOCRIT 25.9 % (42.0-52.0); HEMOGLOBIN 8.6 g/dl (13.5-18.0); MEAN CORPUSCULAR HEMOGLOBIN 32 pg (27.0-31.0)
[2021-06-27 13:28] LABS: CALCIUM 7.9 mg/dL (8.4-10.2); CREATININE, serum 2.02 mg/dL (0.72-1.25); POTASSIUM 3.6 mmol/L (3.5-4.5)
--- NOTE | 2021-06-27 20:28 | NUR ---
HEP GTT INCREASED 150ML/HR FROM 10.5 TO 12ML/HR. NEXT HEPXA AT 0115 06/28.
[2021-06-28 04:01] VITALS: BP 114/60; PULSE 66; TEMP 97.5
--- NOTE | 2021-06-28 06:01 | NUR ---
PT HAD UNEVENTFUL NIGHT. HEP GTT INFUSING AT 12ML/HR NEXT HEPXA AT 0715 THIS MORNING. 02 ROOM AIR WITH SATURATIONS OVER 92 PERCENT. ALL MEDICATIONS ADMINISTERED ORDERED. PT EXPRESSES NO ADDITIONAL NEEDS AT THIS TIME. CALL LIGHT WITHIN REACH.
[2021-06-28 08:29] VITALS: BP 96/71; PULSE 75; TEMP 97.4
[2021-06-28 09:04] LABS: MEAN CELL VOLUME 95 fl (80.0-100.0); MEAN CORPUSCULAR HGB CONC 33 g/dl (33.0-37.0); MEAN PLATELET VOLUME 10.8 fl (7.4-10.4); PLATELET COUNT 237 K/mm3 (130-400); RED BLOOD COUNT 2.74 M/mm3 (4.20-5.60)
[2021-06-28 09:07] LABS: HEMATOCRIT 25.9 % (42.0-52.0); HEMOGLOBIN 8.6 g/dl (13.5-18.0); MEAN CORPUSCULAR HEMOGLOBIN 31 pg (27.0-31.0)
--- NOTE | 2021-06-28 09:09 | NUR ---
Pt awake upon entry, sitting in the recliner. No C/O pain at this time. Shift assessments complete, left Pt call light in reach.
[2021-06-28 09:22] LABS: CALCIUM 8.1 mg/dL (8.4-10.2); CREATININE, serum 2.27 mg/dL (0.72-1.25); POTASSIUM 3.6 mmol/L (3.5-4.5)
[2021-06-28 09:52] LABS: BAND 8 % (0-10); LYMPHOCYTE 7 % (20.0-51.0); NEUTROPHILS 81 % (42.0-75.2); OVALOCYTES 1+; PLATELET ESTIMATE NORMAL (NORMAL); SCHISTOCYTES 1+
[2021-06-28 12:01] VITALS: BP 149/46; PULSE 61; TEMP 98.2
[2021-06-28 15:17] VITALS: BP 119/90; PULSE 73; TEMP 97.5
--- NOTE | 2021-06-28 20:36 | NUR ---
THIS NURSE CONTACTED SHOE D[employer]ER CARINA WITH DR. VIZCAINO AT THIS TIME. CONSULT COMPLETE.
[2021-06-28 20:42] VITALS: BP 148/42; PULSE 63; TEMP 98.7
[2021-06-29 00:41] VITALS: BP 160/50; PULSE 76; TEMP 97.4
[2021-06-29 04:00] VITALS: BP 138/63; PULSE 72; TEMP 97.8
--- NOTE | 2021-06-29 06:38 | NUR ---
PT HAD UNEVENTFUL NIGHT THIS NIGHT. ALL NEEDS MET THIS NIGHT. CALL LIGHT WITHIN REACH.
[2021-06-29 07:10] LABS: MEAN CELL VOLUME 96 fl (80.0-100.0); MEAN CORPUSCULAR HGB CONC 33 g/dl (33.0-37.0); MEAN PLATELET VOLUME 10.5 fl (7.4-10.4); PLATELET COUNT 251 K/mm3 (130-400); RED BLOOD COUNT 2.71 M/mm3 (4.20-5.60); REDCELL DISTRIBUTION WIDTH-CV 15.1 % (11.5-14.5)
[2021-06-29 07:18] LABS: HEMOGLOBIN 8.6 g/dl (13.5-18.0); MEAN CORPUSCULAR HEMOGLOBIN 32 pg (27.0-31.0)
[2021-06-29 07:28] LABS: CALCIUM 7.9 mg/dL (8.4-10.2); CREATININE, serum 2.02 mg/dL (0.72-1.25); POTASSIUM 3.6 mmol/L (3.5-4.5)
[2021-06-29 08:00] VITALS: BP 118/56; PULSE 69; TEMP 97.9
[2021-06-29 08:08] LABS: BAND 1 % (0-10); LYMPHOCYTE 24 % (20.0-51.0); METAMYELOCYTE 1 % (0-0); NEUTROPHILS 67 % (42.0-75.2); OVALOCYTES 1+; PLATELET ESTIMATE NORMAL (NORMAL)
--- NOTE | 2021-06-29 11:04 | NUR ---
PT LAYING IN BED IN PLEASANT MOOD. PT SEEMED SLIGHTLY CONFUSED AND NOT ORIENTATED TO TIME. DURING MED PASS, PATIENT KEPT STATING "SCHEDULE SAYS THESE IN THE MORNING" THIS RN REORIENTATED PT TO TIME AND APPROPRIATE TIME FOR MEDICATION. PT AT BEDSIDE, PT BROUGHT PT COFFEE THIS MORNING WITHOUT THIS RN NOTICING, PT AND DR NOTIFIED OF NEEDING TO RESCHEDULE MIGDALIA DUE TO CAFFEINE. WILL RE EDUCATE ABOUT NPO STATUS AT MIDNIGHT WITH NO CAFFEINE TOMORROW.
[2021-06-29 11:37] VITALS: BP 152/48; PULSE 80; TEMP 97.5
[2021-06-29 16:00] VITALS: BP 101/67; PULSE 82; TEMP 97.8
--- NOTE | 2021-06-29 18:38 | NUR ---
PT HAS BEEN PLEASANT ALL DAY. DENIES ANY PAIN OR SOB. PT HAS COUGH, BUT DENIES ANY DIFFICULTY. TOOK ALL MEDS PRESCRIBED. PT AT BEDSIDE MOST OF DAY AND BOTH INVOLVED IN CARE.
[2021-06-29 19:52] VITALS: BP 119/61; PULSE 71; TEMP 97.5
--- NOTE | 2021-06-29 20:18 | NUR ---
Patient is in bed, alert and oriented, VSS, reports no SOB, wheezes with exalation. Tele in place, paced, 1500FR, Reports no pain, nausea or vomiting. Assessmente completed, no further needs at this time, call light within reach.
[2021-06-30 00:28] VITALS: BP 116/69; PULSE 78; TEMP 97.4
[2021-06-30 04:49] VITALS: BP 128/57; PULSE 63; TEMP 97.5
--- NOTE | 2021-06-30 07:18 | NUR ---
Patient has had no problems along the night. No complains of SOB. Shift report given to day nurse.
[2021-06-30 07:39] LABS: MEAN CELL VOLUME 94 fl (80.0-100.0); MEAN CORPUSCULAR HGB CONC 34 g/dl (33.0-37.0); MEAN PLATELET VOLUME 10.8 fl (7.4-10.4); PLATELET COUNT 248 K/mm3 (130-400); RED BLOOD COUNT 2.78 M/mm3 (4.20-5.60); REDCELL DISTRIBUTION WIDTH-CV 15.2 % (11.5-14.5)
[2021-06-30 07:50] VITALS: BP 104/58; PULSE 68; TEMP 97.6
[2021-06-30 07:50] LABS: CALCIUM 7.8 mg/dL (8.4-10.2); CREATININE, serum 1.86 mg/dL (0.72-1.25); POTASSIUM 3.9 mmol/L (3.5-4.5)
[2021-06-30 07:51] LABS: HEMATOCRIT 26.1 % (42.0-52.0); HEMOGLOBIN 8.8 g/dl (13.5-18.0); MEAN CORPUSCULAR HEMOGLOBIN 32 pg (27.0-31.0)
[2021-06-30] MEDS ORDERED: RT ADVAIR 228 DISKUS IH (07:53)
[2021-06-30] MEDS ORDERED: RT SPIRIVA18 MCG IH (07:55)
[2021-06-30] MEDS ORDERED: TESSALON PERLE200 MG PO (07:58)
[2021-06-30 08:17] LABS: ANISOCYTOSIS 1+; EOSINOPHIL 1 % (0-4); HYPOCHROMIA 1+; LYMPHOCYTE 19 % (20.0-51.0); NEUTROPHILS 74 % (42.0-75.2)
[2021-06-30 08:18] LABS: PLATELET ESTIMATE NORMAL (NORMAL)
[2021-06-30] MEDS ORDERED: CEFTIN500 MG PO (09:02)
[2021-06-30] MEDS ORDERED: MUCUS RELIEF200 MG PO (09:03)
[2021-06-30] MEDS ORDERED: PREDNISONE20 MG PO (09:04)
--- NOTE | 2021-06-30 10:49 | NUR ---
pt required 2lpm/nc to maintain a spo2 or 92% during exercise
--- NOTE | 2021-06-30 11:14 | NUR ---
Collaborated with OT and patient will need 2Lt home O2. Met with patient and patients at bedside to notify and obtain a perfered company. Patient and in agreement to ssetting up home O2 through [facility]. Order obtained from SY Bean. Gerry at [facility] contacted and orders faxed to them. Gerry informed me that they probably will not be able to deliver it to the hospital until later in the day.
--- NOTE | 2021-06-30 11:39 | NUR ---
First visit from the bereavement program coordinator. No needs right now.
[2021-06-30 11:43] VITALS: BP 134/75; PULSE 89; TEMP 97.7
--- NOTE | 2021-06-30 14:13 | NUR ---
Discharge orders discussed with patient and his , instructed to follow up with PCP/cards/ pulm as we have scheduled for him, IV and tele removed, home O2 being ordered by Social work, waiting for portable tank to be delivered, I will escort the patient out the door when he is ready
--- NOTE | 2021-06-30 14:26 | NUR ---
TERES[employer] delivered the patient's oxygen to his room. No additional needs at this time.
== END 2021-06-30 14:16 | disposition home or self-care (01) | DRG 871 ==
LOC: COL.ER 15:47 → MEDICAL 18:11
PROVIDERS: Emergency Medicine; Physician Assistant; Student in an Organized Health Care Education/Training Program; ADMIT Internal Medicine
DX: A40.3 Sepsis due to Streptococcus pneumoniae (principal); J96.01 Acute respiratory failure with hypoxia; J44.1 Chronic obstructive pulmonary disease with (acute) exacerbation; I42.9 Cardiomyopathy, unspecified; I50.22 Chronic systolic (congestive) heart failure; I13.0 Hypertensive heart and chronic kidney disease with heart failure and stage 1 through stage 4 chronic kidney disease, or unspecified chronic kidney disease; N17.9 Acute kidney failure, unspecified; T82.897A Other specified complication of cardiac prosthetic devices, implants and grafts, initial encounter; Z66 Do not resuscitate; I25.10 Atherosclerotic heart disease of native coronary artery without angina pectoris; E78.5 Hyperlipidemia, unspecified; M19.90 Unspecified osteoarthritis, unspecified site; E03.9 Hypothyroidism, unspecified; I48.91 Unspecified atrial fibrillation; K21.9 Gastro-esophageal reflux disease without esophagitis; R73.9 Hyperglycemia, unspecified; E87.5 Hyperkalemia; D63.8 Anemia in other chronic diseases classified elsewhere; N40.1 Benign prostatic hyperplasia with lower urinary tract symptoms; N39.498 Other specified urinary incontinence; N18.30 Chronic kidney disease, stage 3 unspecified; I34.0 Nonrheumatic mitral (valve) insufficiency; Y71.2 Prosthetic and other implants, materials and accessory cardiovascular devices associated with adverse incidents; Z96.652 Presence of left artificial knee joint; Z20.822 Contact with and (suspected) exposure to COVID-19; Z95.5 Presence of coronary angioplasty implant and graft; Z95.2 Presence of prosthetic heart valve; Z86.73 Personal history of transient ischemic attack (TIA), and cerebral infarction without residual deficits; Z79.01 Long term (current) use of anticoagulants; Z95.0 Presence of cardiac pacemaker; Z23 Encounter for immunization
CPT/HCPCS: 99223-AI; 99232-AI; 99233-AI; 99239; A9540; A9567; J0690; J0696; J1644; J1940; J2920; J2930; J7512

== ENCOUNTER 2021-11-03 16:13 | Observation (INO) | payer MEDICARE, BC ==
[~2021-11-03] VITALS: Ht 172.7 cm; Wt 70.5 kg
[~2021-11-03 16:13] MED LIST changes: +MUCUS RELIEF200 MG PO; +PREDNISONE20 MG PO; +RT ADVAIR 228 DISKUS IH; +RT SPIRIVA18 MCG IH; +TESSALON PERLE200 MG PO
[2021-11-03 16:42] LABS: BASO # 0.1 K/mm3 (0.0-0.2); BASO % 0.9 % (0.0-2.0); EOS # 0.3 K/mm3 (0.0-0.7); EOS % 2.6 % (0.0-4.0); GRAN # 5.1 K/mm3 (1.4-6.5); GRAN % 53.3 % (42.2-75.2); LYMPH # 3.1 K/mm3 (1.2-3.4); LYMPH % 32.6 % (20.0-51.0); MEAN CELL VOLUME 95 fl (80.0-100.0); MEAN CORPUSCULAR HEMOGLOBIN 30 pg (27-31); MEAN CORPUSCULAR HGB CONC 32 g/dl (33.0-37.0); MEAN PLATELET VOLUME 10.6 fl (7.4-10.4); MONO % 10.2 % (1.7-9.3); PLATELET COUNT 250 K/mm3 (130-400); RED BLOOD COUNT 3.99 M/mm3 (4.20-5.60); REDCELL DISTRIBUTION WIDTH-CV 14.6 % (11.5-14.5)
[2021-11-03 17:07] LABS: ALBUMIN 3.2 gm/dL (3.4-4.8); BILIRUBIN,TOTAL 0.4 mg/dL (0.2-1.2); CALCIUM 8.5 mg/dL (8.4-10.2); CREATININE, serum 1.91 mg/dL (0.72-1.25); POTASSIUM 4.7 mmol/L (3.5-4.5); TOTAL PROTEIN 6.1 gm/dL (6.2-8.1)
[2021-11-03 17:18] LABS: TROPONIN-I 0.057 ng/mL (0.00-0.033)
[2021-11-03 18:08] LABS: COLLECTION METHOD CLEAN CATCH
[2021-11-03 18:22] LABS: PH 7 (5-8); SQUAMOUS EPITHELIAL None Seen /hpf (0-10); URINE APPEARANCE Clear (CLEAR/HAZY); URINE BACTERIA None Seen /hpf (NONE SEEN); URINE BILIRUBIN Negative (NEGATIVE); URINE BLOOD 1+ (NEGATIVE); URINE COLOR Straw (YELLOW); URINE GLUCOSE 2+ (NEGATIVE); URINE KETONE Negative (NEGATIVE); URINE LEUKOCYTE ESTERASE Negative (NEGATIVE); URINE NITRATE Negative (NEGATIVE); URINE PROTEIN(semi-quant) Negative (NEGATIVE); URINE RBC 0-2 /hpf (0-2); URINE UROBILINOGEN Negative (NEGATIVE)
[2021-11-03 19:01] LABS: PROTHROMBIN TIME 10.7 SECONDS (9.7-12.8)
[2021-11-03] MEDS ORDERED: K-DUR 10 MEQ T10 MEQ PO (19:05)
[2021-11-03] MEDS ORDERED: 00186-0370-20 IH (19:21)
[2021-11-03] MEDS ORDERED: MEDROL4 MG PO (19:22)
[2021-11-03] MEDS ORDERED: B COMPLEX #11 TA1 PO (19:24)
[2021-11-03] MEDS ORDERED: ZAROXOLYN 2.52.5 MG PO (19:24)
[2021-11-03] MEDS ORDERED: JARDIANCE10 PO (19:26)
--- NOTE | 2021-11-03 20:30 | NUR ---
PT ADMITTED TO ROOM 330 FOR CHEST PAIN AND SOB. A&0X4. PT DENIES CHEST MIKEY AT THIS TIME. SEE NEW ORDERS. CALL LIGHT IN REACH.
[2021-11-03 20:33] VITALS: BP 139/81; PULSE 68; TEMP 97.8
--- NOTE | 2021-11-03 20:46 | NUR ---
REPORTED NEW TROPONIN TO LIBRA WHARTON. NO NEW ORDERS.
--- NOTE | 2021-11-03 22:13 | NUR ---
STRATED 2ND IV TO LT F/A #22G WITH 2 ATTEMPTS.
--- NOTE | 2021-11-03 22:33 | NUR ---
[facility] GTT STARTED AT 8CC/800 UNITS/HR TO LT F/A.
[2021-11-03 22:43] LABS: PARTIAL THROMBOPLASTIN TIME 27.7 SECONDS (26.0-37.0)
[2021-11-04] VITALS (16 sets, daily range): BP systolic 102–163; BP diastolic 40–88; PULSE 34–76; TEMP 97.3–98.2
--- NOTE | 2021-11-04 02:38 | NUR ---
PT RESTING QUIETLY. NPO AT MN. HEP GTT CONTINUES. NO DISTRESS.
[2021-11-04 05:14] LABS: CHOLESTEROL RISK RATIO 3.4
[2021-11-04 05:31] LABS: TROPONIN-I 0.09 ng/mL (0.00-0.033)
--- NOTE | 2021-11-04 05:36 | NUR ---
CALL RUTH DUDLEY TO LIBRA WHARTON.
--- NOTE | 2021-11-04 08:09 | NUR ---
Pt assessment complete. Pt resting in bed upon entry, he is A/O x4. His breathing is even and unlabored on RA. Pt denies SOB. No chest pain at this time. Pt states "I feel pretty good this morning". Denies any dizziness. Heparin infusing per protocol. POC discussed with patient as well as NPO orders, pt verbalized understanding. No further needs at this time. Call light within reach.
--- NOTE | 2021-11-04 11:25 | NUR ---
furnace worker met with patient to discuss discharge plan. Patient's Nilda ([phone]) present at bedside. Patient and both live at home in [place]. Patient is independent with his ADL's and utilizes a cane to assist with ambulation. Upon last dc, patient was established with home oxygen through [facility], but has since stopped needing home oxygen. PCP is Dr. Pires and he utilizes both the [facility] and [facility] for medications. Patient reports that he does have a DPOA-HC established and that the hospial should have a copy. Patient's EMR does not have a copy. ENDER Camara contacted PCP office and LM for [facility] to see if they have a copy. Discharge plan: Home; pending PT/OT santiago
--- NOTE | 2021-11-04 12:12 | NUR ---
Social Work student attempted to locate a DPOA-HC for lucila from his PCP office. Renetta with Dr. Pires was on phone aurelio , and stated she did not have one on file for the patient.
--- NOTE | 2021-11-04 13:46 | NUR ---
First visit from the high school foreign language tutor. NO needs right now.
--- NOTE | 2021-11-04 18:34 | NUR ---
Attempted to deflate radial band by 5mls, bleeding present. Reinserted air. Site to R groin CDI. Pt still bedrest at this time. Has no concerns. Call light within reach.
--- NOTE | 2021-11-04 19:00 | NUR ---
RECEIVED CHANGE OF SHIFT REPORT FROM DAY SHIFT RN.
--- NOTE | 2021-11-04 20:05 | NUR ---
NO BLEEDING OBSERVED TO R RADIAL CATH PUNCTURE SITE, REMOVED RADIAL BAND, BANDAID APPLIED. WRIST BOARD REMOVED.
[2021-11-05] VITALS: BP 153/41; PULSE 59; TEMP 97.6
[2021-11-05 03:52] VITALS: BP 150/43; PULSE 65; TEMP 97.3
[2021-11-05 06:58] LABS: BASO # 0.1 K/mm3 (0.0-0.2); BASO % 0.7 % (0.0-2.0); EOS # 0.3 K/mm3 (0.0-0.7); EOS % 3.4 % (0.0-4.0); GRAN # 4.2 K/mm3 (1.4-6.5); GRAN % 51.2 % (42.2-75.2); HEMOGLOBIN 10.7 g/dl (13.5-18.0); LYMPH # 2.8 K/mm3 (1.2-3.4); LYMPH % 34.4 % (20.0-51.0); MEAN CELL VOLUME 94 fl (80.0-100.0); MEAN CORPUSCULAR HEMOGLOBIN 30 pg (27-31); MEAN CORPUSCULAR HGB CONC 32 g/dl (33.0-37.0); MEAN PLATELET VOLUME 10.7 fl (7.4-10.4); MONO # 0.8 K/mm3 (0.1-0.6); MONO % 9.9 % (1.7-9.3); PLATELET COUNT 212 K/mm3 (130-400); REDCELL DISTRIBUTION WIDTH-CV 14.6 % (11.5-14.5)
--- NOTE | 2021-11-05 07:09 | NUR ---
CHANGE OF SHIFT REPORT GIVEN TO DAY SHIFT RNHERIBERTO.
[2021-11-05 07:24] LABS: CALCIUM 7.9 mg/dL (8.4-10.2); CREATININE, serum 1.59 mg/dL (0.72-1.25); POTASSIUM 4.2 mmol/L (3.5-4.5)
[2021-11-05 07:31] LABS: HEMATOCRIT 33.7 % (42.0-52.0)
[2021-11-05 08:00] VITALS: BP 105/51; PULSE 62; TEMP 97.5
--- NOTE | 2021-11-05 11:40 | NUR ---
Patient's DPOA-HC faxed to surgical unit. Copy stickered and placed in patient's chart.
[2021-11-05 12:00] VITALS: BP 125/41; PULSE 70; TEMP 97.5
--- NOTE | 2021-11-05 14:02 | NUR ---
PT MET CRITERIA FOR DISCHARGE, VSS. PT DENIES CHEST PAIN. IV REMOVED WITHOUT COMPLICATIONS, CATHETER INTACT. DISCHARGE INSTRUCTIONS REVIEWED, PT VERBALIZED UNDERSTANDING. PT AWARE OF F/U APPTS. PT DC TO HOME VIA WHEELCHAIR ACCOMPANIED BY LOGISTICS SUPPORT.
== END 2021-11-05 14:17 | disposition home or self-care (01) ==
LOC: COL.ER 16:13 → SURG 18:16
PROVIDERS: Nurse Practitioner Family; Nurse Practitioner Primary Care; Physician Assistant; ADMIT Student in an Organized Health Care Education/Training Program
DX: I25.110 Atherosclerotic heart disease of native coronary artery with unstable angina pectoris (principal); I08.0 Rheumatic disorders of both mitral and aortic valves; I21.4 Non-ST elevation (NSTEMI) myocardial infarction; I49.5 Sick sinus syndrome; E78.5 Hyperlipidemia, unspecified; E87.5 Hyperkalemia; I13.0 Hypertensive heart and chronic kidney disease with heart failure and stage 1 through stage 4 chronic kidney disease, or unspecified chronic kidney disease; I50.9 Heart failure, unspecified; N18.9 Chronic kidney disease, unspecified; D63.1 Anemia in chronic kidney disease; J44.9 Chronic obstructive pulmonary disease, unspecified; E03.9 Hypothyroidism, unspecified; K21.9 Gastro-esophageal reflux disease without esophagitis; R32 Unspecified urinary incontinence; I48.91 Unspecified atrial fibrillation; Z95.2 Presence of prosthetic heart valve; Z95.5 Presence of coronary angioplasty implant and graft; Z87.891 Personal history of nicotine dependence; Z79.899 Other long term (current) drug therapy; Z86.73 Personal history of transient ischemic attack (TIA), and cerebral infarction without residual deficits; Z79.82 Long term (current) use of aspirin
CPT/HCPCS: 99233-AI; 99239; A9270; C1760; C1769; C1894; G0378; J1644; J2250; J3010; J7030; J7509; Q9967

== ENCOUNTER 2022-05-21 12:20 | Emergency (ER) | payer MEDICARE, BC ==
[~2022-05-21] VITALS: Ht 172.7 cm; Wt 75.0 kg
[~2022-05-21 12:20] MED LIST changes: +B COMPLEX #11 TA1 PO; +JARDIANCE10 PO; +ZAROXOLYN 2.52.5 MG PO
[2022-05-21 12:24] VITALS: BP 93/53
[2022-05-21] MEDS ORDERED: CEPHALEXIN500 M1 PO (12:45)
[2022-05-21 13:48] VITALS: PULSE 66
== END 2022-05-21 13:48 | disposition home or self-care (01) ==
LOC: COL.ER 12:20
DX: S31.823A Puncture wound without foreign body of left buttock, initial encounter (principal); S51.811A Laceration without foreign body of right forearm, initial encounter; I48.91 Unspecified atrial fibrillation; I25.10 Atherosclerotic heart disease of native coronary artery without angina pectoris; Z79.01 Long term (current) use of anticoagulants; Z79.82 Long term (current) use of aspirin; Z79.899 Other long term (current) drug therapy; W18.30XA Fall on same level, unspecified, initial encounter; Y92.59 Other trade areas as the place of occurrence of the external cause